=== PATIENT | female | born 1960 | race Caucasian/White ===

== ENCOUNTER 2023-04-01 18:39 | Emergency (ER) | payer OTHER ==
[2023-04-01 18:51] VITALS: TEMP 98.7; BMI 38.4
[2023-04-01] MEDS ORDERED: morphine CARPU-JECT 4 MG/1 ML DISP.SYRIN IVPUSH ONE (19:06)
[2023-04-01] MEDS ORDERED: morphine SULFATE 4 MG/ML VIAL ONE (19:15)
[2023-04-01] MEDS ORDERED: PROPOFOL 200 MG/20 ML VIAL IVPUSH ONE ×3 (19:57→20:43)
[2023-04-01] MEDS ORDERED: KETAMINE HCL 200 MG/20 ML VIAL IVPUSH ONE ×3 (19:58→20:42)
[2023-04-01] MEDS ORDERED: DIPHTH,PERTUSS(ACELL),TET 0.5 ML DISP.SYRIN IM ONE ×2 (20:01→21:24)
[2023-04-01] MEDS ORDERED: KETAMINE HCL 200 MG/20 ML VIAL ONE ×2 (20:01→20:03)
[2023-04-01] MEDS ORDERED: PROPOFOL 20 ML ONE ×2 (20:01→20:04)
[2023-04-01 21:10] VITALS: RESP 18
[2023-04-01 21:36] VITALS: BP 130/70; PULSE 80
== END 2023-04-01 21:38 | disposition home or self-care (01) ==
LOC: JER 18:39
PROC: 0RSKXZZ Reposition Left Shoulder Joint, External Approach (ICD-10-PCS; principal; 2023-04-01)
PROC: 0HQ1XZZ Repair Face Skin, External Approach (ICD-10-PCS; 2023-04-01)
PROC: 3E033NZ Introduction of Analgesics, Hypnotics, Sedatives into Peripheral Vein, Percutaneous Approach (ICD-10-PCS; 2023-04-01)
PROC: 3E033GC Introduction of Other Therapeutic Substance into Peripheral Vein, Percutaneous Approach (ICD-10-PCS; 2023-04-01)
PROC: 3E033GC Introduction of Other Therapeutic Substance into Peripheral Vein, Percutaneous Approach (ICD-10-PCS; 2023-04-01)
DX: S42.202A Unspecified fracture of upper end of left humerus, initial encounter for closed fracture (principal); S43.015A Anterior dislocation of left humerus, initial encounter; S01.112A Laceration without foreign body of left eyelid and periocular area, initial encounter; W01.198A Fall on same level from slipping, tripping and stumbling with subsequent striking against other object, initial encounter
CPT/HCPCS: 73000-TC-LT-FY; 73030-TC-LT-FY; 73060-TC-LT-FY; 99284-25